=== PATIENT | male | born 1990 | race Caucasian/White ===

== ENCOUNTER 2022-01-31 09:51 | Emergency (ER) | payer OTHER ==
[2022-01-31 09:56] VITALS: RESP 16; TEMP 98.3
[2022-01-31] MEDS ORDERED: HYDROcodone/APAP 7.5-325MG 1 EACH TAB PO ONE (10:02)
[2022-01-31] MEDS ORDERED: LIDOCAINE 1% INJ 10MG/ML (20 ML MDV) SQ ONE (10:03)
--- NOTE | 2022-01-31 10:12 | ED ---
Upper Extremity HPI - General Chief Complaint: Trauma Stated Complaint: finger lacs Time Seen by Provider: 01/31/22 09:58 Source: patient, family, RN notes reviewed Mode of arrival: ambulatory Limitations: no limitations - History of Present Illness Initial Comments: This is a 31-year-old male who presents to the emergency department for lacerations to the left hand. States that he was starting a chainsaw, and his hand accidentally went over the top of it, causing the injury. His last tetanus vaccine was a couple of years ago. The injury is starting to become very painful. He took an ibuprofen prior to arrival. Denies any fevers, chills, sore throat, cough, dyspnea, chest pain, palpitations, abdominal pain, nausea, vomiting, diarrhea, back pain, or headaches. MD Complaint: Injury to:: left, hand Place: home Treatments Prior to Arrival: bandage, NSAIDS - Related Data Previous Rx's Medication Instructions Recorded Cephalexin [Keflex] 500 mg PO Q6HR 5 Days #20 cap 01/31/22 Allergies Allergy/AdvReac Type Severity Reaction Status Date / Time No Known Allergies Allergy Verified 01/31/22 09:56 Review of Systems ROS Statement: Those systems with pertinent positive or pertinent negative responses have been documented in the HPI. ROS Other: All systems not noted in ROS Statement are negative. Past Medical History Past Medical History: No Reported History History of Any Multi-Drug Resistant Organisms: None Reported Past Surgical History: No Surgical Hx Reported Past Psychological History: No Psychological Hx Reported Smoking Status: Current every day smoker Past Alcohol Use History: Daily Past Drug Use History: None Reported General Exam Limitations: no limitations General appearance: alert, in no apparent distress Head exam: Present: atraumatic, normocephalic, normal inspection Respiratory exam: Present: normal lung sounds bilaterally. Absent: respiratory distress, wheezes, rales, rhonchi, stridor Cardiovascular Exam: Present: regular rate, normal rhythm, normal heart sounds. Absent: systolic murmur, diastolic murmur, rubs, gallop, clicks Neurological exam: Present: alert, oriented X3, CN II-XII intact Psychiatric exam: Present: normal affect, normal mood Skin exam: Present: other (Multiple horizontal lacerations to fingers 2 through 5 on the palmar aspect of the left hand. Active bleeding. Visible subcutaneous tissue.) Course Vital Signs 01/31/22 01/31/22 09:53 14:11 Temperature 98.3 F 98.3 F Pulse Rate 77 80 Respiratory 16 16 Rate Blood Pressure 154/99 148/90 O2 Sat by Pulse 98 98 Oximetry Procedures - Laceration Laceration #1 Consent Obtained: verbal consent Indication: laceration Site: hand (Finger #2) Size (cm): 2 Description: linear Depth: simple, single layer Anesthetic Used: lidocaine 1% Anesthesia Technique: local infiltration Amount (mls): 4 Pre-repair: wound explored, irrigated extensively Type of Sutures: nylon Size of Sutures: 5-0 Number of Sutures: 6 Technique: simple, interrupted Laceration #2 Consent Obtained: verbal consent Indication: laceration Site: hand (finger #3) Size (cm): 3 Description: linear Depth: simple, single layer Anesthetic Used: lidocaine 1% Anesthesia Technique: local infiltration Amount (mls): 5 Pre-repair: wound explored, irrigated extensively Type of Sutures: nylon Size of Sutures: 5-0 Number of Sutures: 8 Technique: simple, interrupted Laceration #3 Consent Obtained: verbal consent Indication: laceration Site: hand (finger #5) Size (cm): 3 Description: linear Depth: simple, single layer Anesthetic Used: lidocaine 1% Anesthesia Technique: local infiltration Amount (mls): 4 Pre-repair: wound explored, irrigated extensively Type of Sutures: nylon Size of Sutures: 5-0 Number of Sutures: 7 Technique: simple, interrupted Medical Decision Making - Medical Decision Making This is a 31-year-old male who presents to the emergency department for finger lacerations. X-ray of the left hand obtained revealing no acute fractures or dislocations. Multiple sutures were placed in fingers 2, 3, and 5. Placement was difficult due to the shredded skin and very limited amount of intact tissue to hold the sutures in place. Finger #4 could not have sutures placed, as there was no intact skin. LET was used instead, with Steri-Strips placed on top. The finger was splinted in mild flexion to avoid excessive bleeding from movement of that finger. The sutures on fingers 2, 3, and 5, also had LET placed on top for further reinforcement. There were also some lacerations on those fingers that could not be repaired with sutures due to the lack of intact skin. Patient's tetanus status is up-to-date. He is instructed to return in 7- 10 days for suture removal. Advised ibuprofen and Tylenol as needed for pain relief. Prescription for 5 day course of Keflex was provided due to the multiple lacerations and the fact that this was a dirty wound. Return precautions reviewed in depth, the patient is instructed to return to the emergency department with any new, worsening, or concerning symptoms. Patient verbalized understanding. This case was discussed in detail with the attending ED physician. Presentation, findings, and treatment plan discussed in detail as well. - Radiology Data Radiology results: report reviewed, image reviewed Disposition Clinical Impression: Laceration of finger of left hand Disposition: HOME SELF-CARE Instructions (If sedation given, give patient instructions): Care For Your Stitches (ED), Skin Adhesive Care (ED) Additional Instructions: Return to the emergency department with any new, worsening, or concerning symptoms and in 7-10 days for removal of your stitches. Alternate with ibuprofen and Tylenol as needed for pain relief. Take the antibiotic as prescribed for 5 days. Prescriptions: Cephalexin [Keflex] 500 mg PO Q6HR 5 Days #20 cap Is patient prescribed a controlled substance at d/c from ED?: No Referrals: Bridgett Bergeron, NPC [Primary Care Provider] - 1-2 days
--- NOTE | 2022-01-31 10:28 | XR ---
EXAMINATION TYPE: XR hand complete LT DATE OF EXAM: 01/31/2022 COMPARISON: None HISTORY: Chainsaw injury TECHNIQUE: 3 view left hand FINDINGS: Joint spaces appear preserved. No acute fracture or dislocation is evident. There is some s oft tissue injury over the pad of the index finger. No radiopaque foreign bodies are evident. Follow up exams can be performed 7-10 days acute trauma for continued pain. IMPRESSION: 1. Soft tissue injury pad of the index finger.
[2022-01-31] MEDS ORDERED: LIDOCAINE/EPINEPHR/TETRACAINE 5 ML BOTTLE TOPICAL ONE ×3 (11:16→12:48)
[2022-01-31] MEDS ORDERED: GELATIN SPONGE,ABSORB (SMALL) 1 EACH SPONGE TOPICAL STA (11:20)
[2022-01-31] MEDS ORDERED: TOPICAL SKIN ADHESIVE 1 EACH AMP TOPICAL ONE ×2 (12:48→13:23)
[2022-01-31] MEDS ORDERED: ACET/COD 300 MG/30 MG STARTER PACK 6 TAB BTL PO STA (14:00)
[2022-01-31 14:13] VITALS: BP 148/90; PULSE 80
== END 2022-01-31 14:13 | disposition home or self-care (01) ==
LOC: EC 09:51
DX: S61.412A Laceration without foreign body of left hand, initial encounter (principal); W31.89XA Contact with other specified machinery, initial encounter; Y92.69 Other specified industrial and construction area as the place of occurrence of the external cause; Y99.0 Civilian activity done for income or pay
CPT/HCPCS: 73130; 12004; 99283; J2001

== ENCOUNTER 2022-02-09 11:40 | Emergency (ER) | payer OTHER ==
[2022-02-09 12:09] VITALS: BP 135/80; PULSE 56; RESP 16; TEMP 98.7
[2022-02-09] MEDS ORDERED: SULFAMETHOX-TMP 800-160MG 1 EACH TAB PO STA (12:17)
[2022-02-09] MEDS ORDERED: CEPHALEXIN 500 MG CAP PO STA (12:17)
[2022-02-09] MEDS ORDERED: cefTRIAXone 250 MG VIAL IM STA (12:43)
--- NOTE | 2022-02-09 12:43 | ED ---
Wound/Laceration HPI - General Chief Complaint: Wound/Laceration Stated Complaint: hand injury-revisit Time Seen by Provider: 02/09/22 12:16 Source: patient Mode of arrival: ambulatory - History of Present Illness Initial Comments: Patient is a 31-year-old male who presents for wound evaluation. Patient cut palmar aspect of digits with chainsaw on 01/31, Patient was here for suture removal today when triage nurse noticed infection. he was discharged with 5 days ago Keflex which he reports taking as directed. Patient reports minimal pain since incident. Does report decreased sensation of pinkly and inability to flex. Denies fever and chills. Has not noticed any drainage. denies history of cellulitis and MRSA. - Related Data Previous Rx's Medication Instructions Recorded Cephalexin [Keflex] 500 mg PO Q6HR 5 Days #20 cap 01/31/22 Cephalexin [Keflex] 500 mg PO Q6HR #40 cap 02/09/22 Sulfamethox-Tmp 800-160Mg [Bactrim 1 each PO Q12HR #20 tab 02/09/22 Ds] Allergies Allergy/AdvReac Type Severity Reaction Status Date / Time No Known Allergies Allergy Verified 02/09/22 12:09 Review of Systems ROS Statement: Those systems with pertinent positive or pertinent negative responses have been documented in the HPI. ROS Other: All systems not noted in ROS Statement are negative. Past Medical History Past Medical History: No Reported History History of Any Multi-Drug Resistant Organisms: None Reported Past Surgical History: No Surgical Hx Reported Past Psychological History: No Psychological Hx Reported Smoking Status: Current every day smoker Past Alcohol Use History: Daily Past Drug Use History: None Reported General Exam General appearance: alert, in no apparent distress Head exam: Present: atraumatic, normocephalic, normal inspection Eye exam: Present: normal appearance, PERRL, EOMI. Absent: scleral icterus, conjunctival injection, periorbital swelling Respiratory exam: Present: normal lung sounds bilaterally. Absent: respiratory distress, wheezes, rales, rhonchi, stridor Cardiovascular Exam: Present: regular rate, normal rhythm, normal heart sounds. Absent: systolic murmur, diastolic murmur, rubs, gallop, clicks Extremities exam: Present: full ROM (limited flexion of left pinky), other (mild swelling of second left finger with purulent drainage. neurovascularly intact ) Neurological exam: Present: alert, oriented X3, CN II-XII intact Psychiatric exam: Present: normal affect, normal mood Skin exam: Present: warm, dry, intact, normal color. Absent: rash Course Vital Signs 02/09/22 12:06 Temperature 98.7 F Pulse Rate 56 L Respiratory 16 Rate Blood Pressure 135/80 O2 Sat by Pulse 99 Oximetry Medical Decision Making - Medical Decision Making this is a 31-year-old male who presents for wound reevaluation. second digit is infected with purulent drainage. no drainable abscess. neurovascularly intact. Wound cultured. Patient will be discharged with Keflex and Bactrim. he was given a dose of Rocephin IM and Bactrim in the emergency department. strict return parameters discussed. patient will return on Saturday for suture removal and wound recheck. he will be referred to technical support specialist for possible tendon injury of the pinky. Dr. Gallo is my attending. Disposition Clinical Impression: Wound infection Disposition: HOME SELF-CARE Condition: Good Instructions (If sedation given, give patient instructions): Care For Your Stitches (ED), Acute Wound Care (ED) Additional Instructions: Please take antibiotics as directed. Keep wound clean and dry. Washing lightly is okay but do not soak underwater. Please return Saturday for suture removal and wound recheck. Follow-up with primary care provider in one to 2 days. Return to the emergency department experience new, concerning, or worsening symptoms. Orthopedic referral is listed for pinky numbness and movement issues. Prescriptions: Sulfamethox-Tmp 800-160Mg [Bactrim Ds] 1 each PO Q12HR #20 tab Cephalexin [Keflex] 500 mg PO Q6HR #40 cap Is patient prescribed a controlled substance at d/c from ED?: No Referrals: Amor Gonzales MD [Primary Care Provider] - 1-2 days Gisella Campoverde DO [Doctor of Osteopathic Medicine] - 1-2 days
== END 2022-02-09 12:54 | disposition home or self-care (01) ==
LOC: EC 11:40
DX: T81.49XA Infection following a procedure, other surgical site, initial encounter (principal); F17.200 Nicotine dependence, unspecified, uncomplicated
CPT/HCPCS: 87070; 87205; 99282; 96372; J0696